=== PATIENT | male | born 1990 | race Caucasian/White ===

== ENCOUNTER 2018-10-03 14:11 | Emergency (ER) | payer SELFPAY, OTHER | END 2018-10-03 18:31 | disposition home or self-care (01) | LOC: FTE 14:11 | DX: M79.602 Pain in left arm (principal); R40.2252 Coma scale, best verbal response, oriented, at arrival to emergency department; R40.2362 Coma scale, best motor response, obeys commands, at arrival to emergency department; R40.2142 Coma scale, eyes open, spontaneous, at arrival to emergency department | CPT/HCPCS: 29105; 73060; 73080-LT; 73090; 99283-25 ==